=== PATIENT | female | born 1945 | race Caucasian/White ===

== ENCOUNTER 2017-02-28 14:54 | Emergency (ER) | payer OTHER ==
[~2017-02-28] VITALS: Ht 165.1 cm; Wt 136.4 kg
[~2017-02-28 14:54] MED LIST: ASPI-664 PO; BIMA2.5D BOTH EYES; CELE200C PO; COSO10 BOTH EYES; NIT4 SL; PANT40TA3 PO; PRAM1.5T8 PO; SIN25100 PO
[2017-02-28 15:01] VITALS: Ht 165.1 cm; Wt 136.4 kg
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
[2017-02-28] MEDS ORDERED: MELO-210 PO (15:38)
[2017-02-28] MEDS ORDERED: MIRA50TA PO (15:38)
[2017-02-28] MEDS ORDERED: DULO60CA59 PO (15:38)
[2017-02-28] MEDS ORDERED: MEMA10TA16 PO (15:39)
[2017-02-28] MEDS ORDERED: METO-335 PO (15:39)
[2017-02-28] MEDS ORDERED: ATOR40TA68 PO (15:39)
[2017-02-28] MEDS ORDERED: PRAM1.5T PO (15:40)
[2017-02-28] MEDS ORDERED: RANI300T PO (15:40)
[2017-02-28] MEDS ORDERED: LISI-313 PO (15:41)
[2017-02-28] MEDS ORDERED: ONDA4TAB8 PO (15:41)
[2017-02-28] MEDS ORDERED: QUET25TA33 PO (15:42)
[2017-02-28] MEDS ORDERED: LORA1TAB PO (15:42)
[2017-02-28] MEDS ORDERED: ALPR0.5T6 PO (15:42)
[2017-02-28] MEDS ORDERED: DONE5TAB7 PO (15:43)
[2017-02-28] MEDS ORDERED: LACT20SO2 PO (15:43)
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
[2017-02-28 17:30] LABS: ABNORMAL IP MESSAGE 1; BASOPHILS % 0.3 % (0.0-2.0); EOSINOPHILS % 0.1 % (0.0-7.0); HEMATOCRIT 38.3 % (37.0-47.0); HEMOGLOBIN 12.9 g/dl (12.0-16.0); LYMPHOCYTES # 0.5 10^3/ul (0.8-2.9); LYMPHOCYTES % 5.7 % (15.0-51.0); MEAN CORPUSCULAR HEMOGLOBIN 28.7 pg (29.0-33.0); MEAN CORPUSCULAR HGB CONC 33.7 g/dl (32.0-37.0); MEAN CORPUSCULAR VOLUME 85.1 fl (82.0-101.0); MONOCYTE # 0.4 10^3/ul (0.3-0.9); MONOCYTES % 4.3 % (0.0-11.0); NEUTROPHIL # 7.9 10^3/ul (1.6-7.5); NEUTROPHILS % 89.3 % (39.0-77.0); PLATELET COUNT 219 10^3/UL (140-415); RED CELL DISTRIBUTION WIDTH 12.8 % (11.5-14.5); WHITE BLOOD COUNT 8.8 10^3/ul (4.8-10.8)
[2017-02-28 17:31] LABS: POSITIVE DIFF @See below
[2017-02-28 17:41] LABS: ALANINE AMINOTRANSFERASE 23 IU/L (13-69); ALBUMIN 4.4 g/dl (3.3-4.9); ALBUMIN/GLOBULIN RATIO 1.51; ALKALINE PHOSPHATASE 119 IU/L (42-121); ANION GAP 15 (8-16); ASPARTATE AMINO TRANSFERASE 16 IU/L (15-46); BILIRUBIN,INDIRECT 0.3 mg/dl (0-1.1); BILIRUBIN,TOTAL 0.3 mg/dl (0.2-1.3); BLOOD UREA NITROGEN 17 mg/dl (7-20); CALCIUM 9.5 mg/dl (8.4-10.2); CARBON DIOXIDE 32 mmol/L (21-31); CHLORIDE 95 mmol/L (97-110); CREATININE 0.78 mg/dl (0.44-1.00); GLUCOSE 118 mg/dl (70-220); POTASSIUM 4.1 mmol/L (3.5-5.1); SODIUM 138 mmol/L (135-144); TOTAL PROTEIN 7.3 g/dl (6.1-8.1)
[2017-02-28 17:45] LABS: ACETAMINOPHEN < 10.0 ug/ml (10.0-30.0); ETHANOL < 10.0 mg/dl; SALICYLATE < 1.0 mg/dl (5.0-30.0)
[2017-02-28 17:53] LABS: ADD UMIC NO; UR ASCORBIC ACID NEGATIVE (NEGATIVE); UR BILIRUBIN (Dip) NEGATIVE (NEGATIVE); UR BLOOD (Dip) NEGATIVE (NEGATIVE); UR CLARITY CLEAR (CLEAR); UR COLOR STRAW (YELLOW); UR GLUCOSE (Dip) NEGATIVE (NEGATIVE); UR KETONES (Dip) NEGATIVE (NEGATIVE); UR LEUKOCYTE ESTERASE (Dip) NEGATIVE Leu/ul (NEGATIVE); UR NITRITE (Dip) NEGATIVE (NEGATIVE); UR SPECIFIC GRAVITY (Dip) 1.005 (1.003-1.030); UR TOTAL PROTEIN (Dip) NEGATIVE (NEGATIVE); UR UROBILINOGEN (Dip) NEGATIVE (NEGATIVE)
[2017-02-28 18:03] LABS: BENZODIAZEPINES Negative (NEGATIVE)
[2017-02-28 18:04] LABS: BARBITURATES Negative (NEGATIVE); CANNABINOIDS Negative (NEGATIVE); COCAINE Negative (NEGATIVE); OPIATES Negative (NEGATIVE)
[2017-02-28] MEDS ORDERED: ALPRAZOLAM 0.25 MG TAB PO ONE (22:00)
[2017-02-28] MEDS ORDERED: FAMOTIDINE 20 MG TAB PO ONE (22:00)
[2017-03-01] MEDS ORDERED: HYDROCODONE/APAP (5/325) TAB PO ONE (07:00)
[2017-03-01] MEDS ORDERED: NICARDipine HCL 30 MG CAPSULE ONE (13:26)
[2017-03-01] MEDS ORDERED: NICARDipine HCL 30 MG CAPSULE PO ONE (13:30)
[2017-03-01] MEDS ORDERED: LORAZEPAM 1 MG TAB PO ONE (16:00)
[2017-03-01] MEDS ORDERED: LORAZEPAM 2 MG INJ IM ONE (16:00)
[2017-03-01] MEDS ORDERED: LORAZEPAM 2 MG INJ ONE (16:01)
[2017-03-01] MEDS ORDERED: ACETAMINOPHEN 325 MG TAB ONE (20:25)
[2017-03-01] MEDS ORDERED: ACETAMINOPHEN 325 MG TAB PO ONE (20:30)
[2017-03-01] MEDS: METOPROLOL (XL) 25 MG TAB PO SCH (20:45)
[2017-03-02] MEDS: METOPROLOL (XL) 25 MG TAB PO SCH (09:43)
--- NOTE | 2017-03-02 11:18 | EN ---
Date/Time of Note Date/Time of Note DATE: 03/02/17 TIME: 11:16 ER Progress Note Observation Note: Time: 4 hours Family Hx: No Hypertension, no need for medical sedation Evaluation: This patient has been in the emergency room for over 40 hours. She has been placed on a 5150 hold, and this patient has been accepted at [facility] at this time. DYLON DONIS DO Mar 02, 2017 11:18
[2017-03-02 11:51] VITALS: BP 162/85; PULSE 84; RESP 16; TEMP 98.3
== END 2017-03-02 13:24 ==
LOC: E/R 14:54
DX: F22 Delusional disorders (principal); R40.2252 Coma scale, best verbal response, oriented, at arrival to emergency department; G20 Parkinson's disease; I25.10 Atherosclerotic heart disease of native coronary artery without angina pectoris; I10 Essential (primary) hypertension; R40.2142 Coma scale, eyes open, spontaneous, at arrival to emergency department; R40.2362 Coma scale, best motor response, obeys commands, at arrival to emergency department; Z95.1 Presence of aortocoronary bypass graft
CPT/HCPCS: 36415; 80053; 80306; 80307; 81003; 85025; 96372; 99285; J2060